=== PATIENT | female | born 1950 | race Caucasian/White ===

== ENCOUNTER 2019-02-25 12:54 | Emergency (ER) | payer OTHER, BC ==
[2019-02-25 13:50] LABS: Absolute Lymphocytes (CBC) 2.4 K/uL (0.7-4.9); Eosinophils % 4.6 % (0-4.4); Hematocrit 40.8 % (36.0-45.0); Lymphocytes % 42.8 % (15.3-44.8); MPV 10.7 fL (7.6-11.3); Monocytes % 7.6 % (3.3-12.3); RBC Red Blood Cell Count 4.37 M/uL (3.86-4.86)
--- NOTE | 2019-02-25 13:50 | RAD REPORT ---
EXAM DESCRIPTION: Carmen Single View02/25/2019 1:43 pm CLINICAL HISTORY: Chest pain COMPARISON: none FINDINGS: The lungs appear clear of acute infiltrate. The heart is normal size IMPRESSION: No acute abnormalities displayed
[2019-02-25 13:51] LABS: Protime INR 0.97
[2019-02-25 14:20] LABS: ALT/SGPT 19 U/L (12-78); AST/SGOT 15 U/L (15-37); Alkaline Phosphatase 77 U/L (45-117); BUN Blood Urea Nitrogen 13 mg/dL (7-18); Bicarbonate 30 mmol/L (21-32); Bilirubin Direct 0.1 mg/dL (0-0.2); Bilirubin Total 0.3 mg/dL (0.2-1.0); Glucose Level 102 mg/dL (74-106); Magnesium 2.4 mg/dL (1.8-2.4); NT PRO-BNP 31 pg/mL (<125); Potassium 3.9 mmol/L (3.5-5.1); Protein, Total 7.5 g/dL (6.4-8.2); Sodium Level 140 mmol/L (136-145); Troponin (Emerg Dept Use Only) < 0.02 ng/mL (0.0-0.045)
[2019-02-25] MEDS ORDERED: MAGNE/ALUM HYDROXD 30 ML UCUP ONE (14:45)
[2019-02-25] MEDS ORDERED: LIDOCAINE VISCOUS 2% SOLN 15 ML UDC ONE (14:45)
[2019-02-25] MEDS ORDERED: ASPIRIN 81 MG CHEWABLE TABLET ONE (14:45)
--- NOTE | 2019-02-25 15:04 | EKG ---
Test Date: 2019-02-25 Test Time: 13:03:13 Coal Trammer: ARIELLE MEASUREMENT RESULTS: Intervals: Rate: 71 WI: 140 QRSD: 64 QT: 386 QTc: 419 Starbuck: P: 61 WI: 140 QRS: 63 T: 65 INTERPRETIVE STATEMENTS: Normal sinus rhythm Low voltage QRS Borderline ECG Compared to ECG 12/22/2004 05:50:00 Low QRS voltage now present Electronically Signed On 02-25-19 15:04:12 CDT by Jose Baez
[2019-02-25] MEDS ORDERED: PANTOPRAZOLE 40 MG INJ ONE (16:35)
[2019-02-25] MEDS ORDERED: WATER FOR INJ,STERILE 10 ML ONE (16:36)
--- NOTE | 2019-02-25 17:03 | EDPHYS ---
Physician Documentation [facility] Name: Ema Mccurdy Age: 68 yrs Sex: Female : 1950 Arrival Date: 02/25/2019 Time: 12:56 Bed 27 Private MD: Benny Gaona S ED Physician Mohit Cristobal HPI: 02/25 13:52 This 68 yrs old Female presents to ER via Ambulatory with complaints of Chest jr8 Pain, Chest Pressure. 13:52 The patient or guardian reports chest pain that is located primarily in the substernal jr8 area. Onset: The symptoms/episode began/occurred acutely, today. The pain does not radiate. Associated signs and symptoms: Pertinent positives: None. The chest pain is described as burning. Duration: The patient or guardian reports a single episode, that is still ongoing, that lasted 3 hour(s). Modifying factors: The symptoms are alleviated by nothing. the symptoms are aggravated by nothing. Severity of pain: At its worst the pain was moderate in the emergency department the pain is unchanged. It is unknown whether or not the patient has had similar symptoms in the past. The patient has not recently seen a physician. Patient stated that she has history of Reflux and normally takes two Zantac a day with relief. At 11 am this morning started to have bad heartburn. Took her Zantac but still without relief. Stated that she started to get dizzy as well . Historical: - Allergies: 13:02 Codeine; hj - PMHx: 13:02 None; hj - PSHx: 13:02 Hysterectomy; hj - Immunization history:: Adult Immunizations. - Social history:: Smoking status: Patient uses tobacco products, smokes one-half pack cigarettes per day. - Ebola Screening: : No symptoms or risks identified at this time. ROS: 13:52 Eyes: Negative for injury, pain, redness, and discharge, ENT: Negative for injury, jr8 pain, and discharge, Neck: Negative for injury, pain, and swelling, Respiratory: Negative for shortness of breath, cough, wheezing, and pleuritic chest pain, Abdomen/GI: Negative for abdominal pain, nausea, vomiting, diarrhea, and constipation, Back: Negative for injury and pain, MS/Extremity: Negative for injury and deformity, Skin: Negative for injury, rash, and discoloration, Neuro: Negative for headache, weakness, numbness, tingling, and seizure. 13:52 Cardiovascular: Positive for chest pain, Negative for edema, orthopnea, palpitations, paroxysmal nocturnal dyspnea. Exam: 13:52 Eyes: Pupils equal round and reactive to light, extra-ocular motions intact. Lids and jr8 lashes normal. Conjunctiva and sclera are non-icteric and not injected. Cornea within normal limits. Periorbital areas with no swelling, redness, or edema. ENT: Nares patent. No nasal discharge, no septal abnormalities noted. Tympanic membranes are normal and external auditory canals are clear. Oropharynx with no redness, swelling, or masses, exudates, or evidence of obstruction, uvula midline. Mucous membranes moist. Neck: Trachea midline, no thyromegaly or masses palpated, and no cervical lymphadenopathy. Supple, full range of motion without nuchal rigidity, or vertebral point tenderness. No Meningismus. Chest/axilla: Normal chest wall appearance and motion. Nontender with no deformity. No lesions are appreciated. Cardiovascular: Regular rate and rhythm with a normal S1 and S2. No gallops, murmurs, or rubs. Normal PMI, no JVD. No pulse deficits. Respiratory: Lungs have equal breath sounds bilaterally, clear to auscultation and percussion. No rales, rhonchi or wheezes noted. No increased work of breathing, no retractions or nasal flaring. Abdomen/GI: Soft, non-tender, with normal bowel sounds. No distension or tympany. No guarding or rebound. No evidence of tenderness throughout. Back: No spinal tenderness. No costovertebral tenderness. Full range of motion. Skin: Warm, dry with normal turgor. Normal color with no rashes, no lesions, and no evidence of cellulitis. MS/ Extremity: Pulses equal, no cyanosis. Neurovascular intact. Full, normal range of motion. Neuro: Awake and alert, GCS 15, oriented to person, place, time, and situation. Cranial nerves II-XII grossly intact. Motor strength 5/5 in all extremities. Sensory grossly intact. Cerebellar exam normal. Normal gait. Vital Signs: 13:02 BP 165 / 78; Pulse 71; Resp 18; Temp 98.6(O); Pulse Ox 100% on R/A; Weight 72.57 kg; hj Height 5 ft. 2 in. (157.48 cm); Pain 8/10; 14:35 BP 151 / 70; Pulse 72; Resp 18 S; Pulse Ox 97% on R/A; aa5 15:26 BP 142 / 76; Pulse 65; Resp 14 S; Pulse Ox 98% on R/A; ca1 16:27 BP 139 / 70; Pulse 68; Resp 14 S; Temp 98.4(O); Pulse Ox 96% on R/A; ca1 17:17 BP 141 / 62; Pulse 72; Resp 19 S; Temp 98.2(TE); Pulse Ox 98% on R/A; ca1 13:02 Body Mass Index 29.26 (72.57 kg, 157.48 cm) hj MDM: 13:05 Patient medically screened. jr8 15:39 Data reviewed: vital signs, nurses notes, lab test result(s), EKG, radiologic studies, jr8 plain films. Data interpreted: Pulse oximetry: on room air is 97 %. Interpretation: normal. Counseling: I had a detailed discussion with the patient and/or guardian regarding: the historical points, exam findings, and any diagnostic results supporting the discharge/admit diagnosis, lab results, radiology results. Response to treatment: the patient's symptoms have markedly improved after treatment. 02/25 13:31 Order name: Basic Metabolic Panel [facility] 02/25 13:31 Order name: CBC with Diff [facility] 02/25 13:31 Order name: LFT's; Complete Time: 14:42 [facility] 02/25 13:31 Order name: Magnesium; Complete Time: 14:42 [facility] 02/25 13:31 Order name: NT PRO-BNP; Complete Time: 14:42 [facility] 02/25 13:31 Order name: PT-INR; Complete Time: 14:07 [facility] 02/25 13:31 Order name: Troponin (emerg Dept Use Only); Complete Time: 14:42 [facility] 02/25 13:31 Order name: XRAY Chest (1 view); Complete Time: 13:51 [facility] 02/25 13:32 Order name: Basic Metabolic Panel; Complete Time: 14:42 [facility] 02/25 13:32 Order name: CBC with Automated Diff; Complete Time: 14:07 [facility] 02/25 15:40 Order name: Troponin (emerg Dept Use Only); Complete Time: 17:01 02/25 13:31 Order name: EKG; Complete Time: 13:32 02/25 13:31 Order name: Cardiac monitoring; Complete Time: :02/25 13:31 Order name: EKG - Nurse/Tech; Complete Time: :33 02/25 13:31 Order name: IV Saline Lock; Complete Time: 13:02/25 13:31 Order name: Labs collected and sent; Complete Time: :02/25 13:31 Order name: O2 Per Protocol; Complete Time: :02/25 13:31 Order name: O2 Sat Monitoring; Complete Time: : Administered Medications: 14:35 Drug: GI Cocktail without - (Maalox Suspension 30 ml, Lidocaine Liquid 2 % 15 aa5 ml) Route: PO; 15:30 Follow up: Response: No adverse reaction; Pain is decreased ca1 14:36 Drug: Aspirin Chewable Tablet 324 mg Route: PO; aa5 15:30 Follow up: Response: No adverse reaction; Pain is decreased ca1 16:17 Drug: ProTONIX 40 mg Route: IVP; Site: right antecubital; ca1 17:17 Follow up: Response: No adverse reaction; Pain is decreased ca1 Disposition: 18:02 Co-signature as Attending Physician, Mohit Cristobal MD. rn Disposition: 02/25/19 17:02 Discharged to Home. Impression: Gastro-esophageal reflux disease with esophagitis, Other chest pain. - Condition is Stable. - Discharge Instructions: Esophagitis. - Prescriptions for Protonix 40 mg Oral Tablet - take 1 tablet by ORAL route once daily; 30 tablet. - Medication Reconciliation Form, Thank You Letter, Antibiotic Education, Prescription Opioid Use form. - Follow up: Louis Orourke MD; When: 5 - 6 days; Reason: Recheck today's complaints, Continuance of care, Re-evaluation by your physician. - Problem is new. - Symptoms have improved. Signatures: Dispatcher [employer] EDMohit Rodriguez MD MD rn Calderon, Audri, RN RN aa5 Kareem Decker PA PA jr8 Aniceto Leon RN RN hj AcobVeda RN RN ca1 Corrections: (The following items were deleted from the chart) 17:02 17:02 02/25/2019 17:02 Discharged to Home. Impression: Gastro-esophageal reflux disease jr8 with esophagitis. Condition is Stable. Forms are Medication Reconciliation Form, Thank You Letter, Antibiotic Education, Prescription Opioid Use. Follow up: Louis Orourke; When: 5 - 6 days; Reason: Recheck today's complaints, Continuance of care, Re-evaluation by your physician. Problem is new. Symptoms have improved. jr8 17:19 17:02 02/25/2019 17:02 Discharged to Home. Impression: Gastro-esophageal reflux disease ca1 with esophagitis; Other chest pain. Condition is Stable. Forms are Medication Reconciliation Form, Thank You Letter, Antibiotic Education, Prescription Opioid Use. Follow up: Louis Orourke; When: 5 - 6 days; Reason: Recheck today's complaints, Continuance of care, Re-evaluation by your physician. Problem is new. Symptoms have improved. jr8
--- NOTE | 2019-02-25 17:03 | ER ---
Nurse's Notes [facility] Name: Ema Mccurdy Age: 68 yrs Sex: Female : 1950 Arrival Date: 02/25/2019 Time: 12:56 Bed 27 Private MD: Benny Gaona S Diagnosis: Gastro-esophageal reflux disease with esophagitis;Other chest pain Presentation: 02/25 12:59 Presenting complaint: Patient states: i have this chest pain, like a dull burning pain hj since 9:30 am; i work last night 12 hour shift, i have a bad heart burn; pain is 7/10; reports N/V; reports SOB;. Transition of care: patient was not received from another setting of care. Onset of symptoms was February 25, 2019. Risk Assessment: Do you want to hurt yourself or someone else? Patient reports no desire to harm self or others. Initial Sepsis Screen: Does the patient meet any 2 criteria? No. Patient's initial sepsis screen is negative. Does the patient have a suspected source of infection? No. Patient's initial sepsis screen is negative. Care prior to arrival: None. 12:59 Method Of Arrival: Ambulatory 12:59 Acuity: JIMENA 3 hj Historical: - Allergies: 13:02 Codeine; hj - PMHx: 13:02 None; hj - PSHx: 13:02 Hysterectomy; hj - Immunization history:: Adult Immunizations. - Social history:: Smoking status: Patient uses tobacco products, smokes one-half pack cigarettes per day. - Ebola Screening: : No symptoms or risks identified at this time. Screenin:10 Abuse screen: Denies threats or abuse. Denies injuries from another. Nutritional ca1 screening: No deficits noted. Tuberculosis screening: No symptoms or risk factors identified. Fall Risk IV access (20 points). Assessment: 13:10 General: Appears in no apparent distress. uncomfortable, Behavior is calm, cooperative, ca1 appropriate for age, Reports unable to lie down. C/O SOB and heartburn when laying down. Pain: Complains of pain in mid-sternal area Pain does not radiate. Pain currently is 8 out of 10 on a pain scale. Quality of pain is described as pressure, Pain began 2 hours ago. Is intermittent, Aggravated by repositioning. Neuro: Level of Consciousness is awake, alert, obeys commands, Oriented to person, place, time, situation. Cardiovascular: Heart tones S1 S2 present Capillary refill < 3 seconds Patient's skin is warm and dry. Pulses are all present. Rhythm is sinus rhythm. Respiratory: Airway is patent Respiratory effort is even, unlabored, Respiratory pattern is regular, symmetrical, Breath sounds are clear bilaterally. Respiratory: Reports shortness of breath. GI: Abdomen is flat, non-distended, Bowel sounds present X 4 quads. Abd is soft and non tender X 4 quads. Reports nausea, vomiting. : No deficits noted. No signs and/or symptoms were reported regarding the genitourinary system. EENT: No deficits noted. No signs and/or symptoms were reported regarding the EENT system. Derm: Skin is intact, is healthy with good turgor, Skin is pink, warm \T\ dry. Musculoskeletal: Circulation, motion, and sensation intact. Capillary refill < 3 seconds, Range of motion: intact in all extremities. 14:35 Reassessment: Patient is alert, oriented x 3, equal unlabored respirations, skin aa5 warm/dry/pink. 15:26 Reassessment: Patient appears in no apparent distress at this time. Patient and/or ca1 family updated on plan of care and expected duration. Pain level reassessed. Patient is alert, oriented x 3, equal unlabored respirations, skin warm/dry/pink. 16:27 Reassessment: Patient appears in no apparent distress at this time. Patient and/or ca1 family updated on plan of care and expected duration. Pain level reassessed. Patient is alert, oriented x 3, equal unlabored respirations, skin warm/dry/pink. 17:17 Reassessment: Patient appears in no apparent distress at this time. Patient is alert, ca1 oriented x 3, equal unlabored respirations, skin warm/dry/pink. Patient states feeling better. Vital Signs: 13:02 BP 165 / 78; Pulse 71; Resp 18; Temp 98.6(O); Pulse Ox 100% on R/A; Weight 72.57 kg; hj Height 5 ft. 2 in. (157.48 cm); Pain 8/10; 14:35 BP 151 / 70; Pulse 72; Resp 18 S; Pulse Ox 97% on R/A; aa5 15:26 BP 142 / 76; Pulse 65; Resp 14 S; Pulse Ox 98% on R/A; ca1 16:27 BP 139 / 70; Pulse 68; Resp 14 S; Temp 98.4(O); Pulse Ox 96% on R/A; ca1 17:17 BP 141 / 62; Pulse 72; Resp 19 S; Temp 98.2(TE); Pulse Ox 98% on R/A; ca1 13:02 Body Mass Index 29.26 (72.57 kg, 157.48 cm) ED Course: 12:56 Patient arrived in ED. as 12:57 Benny Gaona MD is Private Physician. as 13:01 Triage completed. hj 13:02 Arm band placed on left wrist. hj 13:04 Kareem Decker PA is PHCP. jr8 13:04 Mohit Cristobal MD is Attending Physician. jr8 13:10 Patient has correct armband on for positive identification. Placed in gown. Bed in low ca1 position. Call light in reach. Side rails up X 1. ticket chopper assembler on. Pulse ox on. NIBP on. Warm blanket given. 13:10 No provider procedures requiring assistance completed. ca1 13:21 Veda Gonzalez, STACY is Primary Nurse. ca1 13:35 Inserted saline lock: 22 gauge in right antecubital area, using aseptic technique. ca1 Blood collected. Patient maintains SpO2 saturation greater than 95% on room air. 13:45 XRAY Chest (1 view) In Process Unspecified. EDMS 17:01 Louis Orourke MD is Referral Physician. jr8 17:18 IV discontinued, intact, bleeding controlled, No redness/swelling at site. Pressure ca1 dressing applied. Administered Medications: 14:35 Drug: GI Cocktail without - (Maalox Suspension 30 ml, Lidocaine Liquid 2 % 15 aa5 ml) Route: PO; 15:30 Follow up: Response: No adverse reaction; Pain is decreased ca1 14:36 Drug: Aspirin Chewable Tablet 324 mg Route: PO; aa5 15:30 Follow up: Response: No adverse reaction; Pain is decreased ca1 16:17 Drug: ProTONIX 40 mg Route: IVP; Site: right antecubital; ca1 17:17 Follow up: Response: No adverse reaction; Pain is decreased ca1 Outcome: 17:02 Discharge ordered by . jr8 17:18 Discharged to home ambulatory, with family. ca1 17:18 Condition: stable 17:18 Discharge instructions given to patient, Instructed on discharge instructions, follow up and referral plans. medication usage, Demonstrated understanding of instructions, follow-up care, medications, Prescriptions given X 1. 17:19 Patient left the ED. ca1 Signatures: Dispatcher [employer] Celine Wade Audri, RN RN aa5 Kareem Decker PA PA jr8 Aniceto Leon RN RN Veda Gonzalez RN RN ca1 Corrections: (The following items were deleted from the chart) 13:04 13:02 Pulse 71bpm; Resp 18bpm; Pulse Ox 100% RA; Temp 98.6F Oral; 72.57 kg; Height 5 hj ft. 2 in.; BMI: 29.2; Pain 8/10; hj
== END 2019-02-25 17:19 | disposition home or self-care (01) ==
LOC: ER 12:54
DX: K21.0 Gastro-esophageal reflux disease with esophagitis (principal); Z88.5 Allergy status to narcotic agent; F17.210 Nicotine dependence, cigarettes, uncomplicated
CPT/HCPCS: 93005; 85025; 80048; 36415; 83735; 85610; 80076; 84484 ×2; 83880; 71045; C9113

== ENCOUNTER 2019-05-11 12:26 | Emergency (ER) | payer BC, OTHER ==
[2019-05-11] MEDS ORDERED: MAGNE/ALUM HYDROXD 30 ML UCUP ONE (12:46)
[2019-05-11] MEDS ORDERED: LIDOCAINE VISCOUS 2% SOLN 15 ML UDC ONE (12:46)
[2019-05-11] MEDS ORDERED: FAMOTIDINE 20 MG/2 ML VIAL IV ONE (14:18)
[2019-05-11 14:49] LABS: Absolute Lymphocytes (CBC) 1.6 K/uL (0.7-4.9); Basophils % 1.3 % (0-1.3); Hematocrit 39.6 % (36.0-45.0); Lymphocytes % 33.4 % (15.3-44.8); MPV 10.5 fL (7.6-11.3); RBC Red Blood Cell Count 4.26 M/uL (3.86-4.86)
--- NOTE | 2019-05-11 15:06 | RAD REPORT ---
EXAM DESCRIPTION: RAD - Chest Single View - 05/11/2019 2:50 pm CLINICAL HISTORY: Chest pain COMPARISON: February 25 TECHNIQUE: AP portable chest image was obtained 1445 hours . FINDINGS: Lungs are clear. Heart and vasculature are normal. No measurable pleural effusion and no p neumothorax. No acute bony abnormality seen. No acute aortic findings suspected. IMPRESSION: No acute cardiopulmonary process. No significant change from comparison.
[2019-05-11 15:12] LABS: ALT/SGPT 18 U/L (12-78); AST/SGOT 16 U/L (15-37); Albumin 4.2 g/dL (3.4-5.0); Alkaline Phosphatase 68 U/L (45-117); BUN Blood Urea Nitrogen 13 mg/dL (7-18); Bicarbonate 30 mmol/L (21-32); Bilirubin Direct 0.1 mg/dL (0-0.2); Bilirubin Total 0.4 mg/dL (0.2-1.0); Glucose Level 102 mg/dL (74-106); Lipase 82 U/L (73-393); NT PRO-BNP 59 pg/mL (<125); Potassium 3.9 mmol/L (3.5-5.1); Protein, Total 7.1 g/dL (6.4-8.2); Sodium Level 139 mmol/L (136-145); Troponin (Emerg Dept Use Only) < 0.02 ng/mL (0.0-0.045)
--- NOTE | 2019-05-11 15:50 | EDPHYS ---
Physician Documentation [facility] Name: Ema Mccurdy Age: 69 yrs Sex: Female : 1950 Arrival Date: 05/11/2019 Time: 12:28 Bed 4 Private MD: Benny Gaona S ED Physician Mohit Cristobal HPI: 05/11 15:14 This 69 yrs old Female presents to ER via Ambulatory with complaints of Chest rn Pain, Dizziness. 15:14 The patient or guardian reports chest pain that is located primarily in the substernal rn area. Onset: 2 week(s) ago. The pain radiates to abdomen. Associated signs and symptoms: Pertinent positives: abdominal pain, Pertinent negatives: cough, diaphoresis, dizziness, lightheadedness, near syncope, palpitations, shortness of breath, syncope, vomiting. The chest pain is described as burning. Duration: The patient or guardian reports multiple episodes, that are intermittent. Modifying factors: The symptoms are alleviated by nothing. the symptoms are aggravated by palpation of area, food. Severity of pain: At its worst the pain was mild in the emergency department the pain has improved. The patient has experienced similar episodes in the past. REports had EGD 2 weeks ago, told has esophagitis and gastric ulcer, put on antacids, has still been having problems since then, taking meds, reports seen for this before and resolved with GI cocktail. Reports burning pain from stomach to chest. No radiation. . Historical: - Allergies: 14:53 Codeine; tw2 - PSHx: 14:53 Hysterectomy; tw2 - Immunization history:: Adult Immunizations up to date. - Social history:: Smoking status: . - Ebola Screening: : Patient denies travel to an Ebola-affected area in the 21 days before illness onset. - Family history:: not pertinent. - Hospitalizations: : No recent hospitalization is reported. ROS: 15:14 Constitutional: Negative for fever, chills, and weight loss, Eyes: Negative for injury, rn pain, redness, and discharge, Neck: Negative for injury, pain, and swelling, Cardiovascular: Negative for palpitations, and edema, Respiratory: Negative for shortness of breath, cough, wheezing, and pleuritic chest pain, Abdomen/GI: Negative for vomiting, diarrhea, and constipation, Back: Negative for injury and pain, MS/Extremity: Negative for injury and deformity, Skin: Negative for injury, rash, and discoloration, Neuro: Negative for headache, weakness, numbness, tingling, and seizure. Exam: 15:14 Constitutional: This is a well developed, well nourished patient who is awake, alert, rn and in no acute distress. Head/Face: Normocephalic, atraumatic. Eyes: Pupils equal round and reactive to light, extra-ocular motions intact. Lids and lashes normal. Conjunctiva and sclera are non-icteric and not injected. Cornea within normal limits. Periorbital areas with no swelling, redness, or edema. Cardiovascular: Regular rate and rhythm. No pulse deficits. Respiratory: Lungs have equal breath sounds bilaterally, clear to auscultation. No increased work of breathing, no retractions or nasal flaring. Abdomen/GI: soft, non-tender MS/ Extremity: Pulses equal, no cyanosis. Neurovascular intact. Full, normal range of motion. Equal circumference. Neuro: Awake and alert, GCS 15, oriented to person, place, time, and situation. Cranial nerves II-XII grossly intact. Motor strength 5/5 in all extremities. Sensory grossly intact. Cerebellar exam normal. Normal gait. Vital Signs: 12:37 BP 147 / 73; Pulse 74; Resp 16; Temp 97.3; Pulse Ox 100% on R/A; la1 14:51 BP 150 / 66; Pulse 62; Resp 10; Pulse Ox 99% on R/A; tw2 15:48 BP 144 / 70; Pulse 64; Resp 20; Pulse Ox 97% on R/A; tw2 MDM: 14:01 Patient medically screened. rn 15:14 ED course: Patient given GI cocktail in lobby, when brought back reports resolved pain, rn feels much better. . 15:48 Differential diagnosis: acute pericarditis, coronary artery disease costochondritis, rn esophagitis, gastritis, gastroesophageal reflux disease (GERD), pancreatitis, peptic ulcer disease, pericarditis, pleurisy. Data reviewed: vital signs, nurses notes, lab test result(s), EKG, radiologic studies, plain films, and as a result, I will discharge patient. Counseling: I had a detailed discussion with the patient and/or guardian regarding: the historical points, exam findings, and any diagnostic results supporting the discharge/admit diagnosis, lab results, radiology results, the need for outpatient follow up, to return to the emergency department if symptoms worsen or persist or if there are any questions or concerns that arise at home. Special discussion: I discussed with the patient/guardian in detail that at this point there is no indication for admission to the hospital. It is understood, however, that if the symptoms persist or worsen the patient needs to return immediately for re-evaluation. 05/11 14:06 Order name: Basic Metabolic Panel rn 05/11 14:06 Order name: CBC with Diff rn 05/11 14:06 Order name: LFT's rn 05/11 14:06 Order name: NT PRO-BNP rn 05/11 14:06 Order name: Troponin (emerg Dept Use Only) rn 05/11 14:06 Order name: Lipase rn 05/11 14:06 Order name: XRAY Chest (1 view) rn 05/11 15:30 Order name: CBC with Automated Diff; Complete Time: 15:47 EDMS 05/11 15:30 Order name: Basic Metabolic Panel; Complete Time: 15:47 EDMS 05/11 15:30 Order name: Liver (Hepatic) Function; Complete Time: 15:47 EDMS 05/11 15:30 Order name: Troponin (Emerg Dept Use Only); Complete Time: 15:47 EDMS 05/11 15:30 Order name: NT PRO-BNP; Complete Time: 15:47 EDMS 05/11 15:30 Order name: Lipase; Complete Time: 15:47 EDMS 05/11 15:35 Order name: RAD; Complete Time: 15:47 EDMS 05/11 14:06 Order name: EKG; Complete Time: 15:32 rn 05/11 14:06 Order name: Cardiac monitoring; Complete Time: 14:13 rn 05/11 14:06 Order name: EKG - Nurse/Tech; Complete Time: 14:13 rn 05/11 14:06 Order name: IV Saline Lock; Complete Time: 14:25 rn 05/11 14:06 Order name: Labs collected and sent; Complete Time: 14:25 rn 05/11 14:06 Order name: O2 Per Protocol; Complete Time: 14:13 rn 05/11 14:06 Order name: O2 Sat Monitoring; Complete Time: 14:13 rn Administered Medications: 14:22 Drug: Pepcid 20 mg Route: IVP; Site: right antecubital; tw2 15:54 Follow up: Response: No adverse reaction; Pain is decreased tw2 Disposition: 05/11/19 15:49 Discharged to Home. Impression: Chest pain, unspecified, Gastro-esophageal reflux disease with esophagitis. - Condition is Stable. - Discharge Instructions: Food Choices for Gastroesophageal Reflux Disease, Adult, Esophagitis, Gastroesophageal Reflux Disease, Adult. - Medication Reconciliation Form, Thank You Letter, Antibiotic Education, Prescription Opioid Use form. - Follow up: Private Physician; When: As needed; Reason: Recheck today's complaints, Re-evaluation by your physician. - Problem is new. - Symptoms have improved. Signatures: Dispatcher [employer] EDLexi Grey RN RN aj1 Mohit Cristobal MD MD rn Wise, Tara, RN RN tw2 Corrections: (The following items were deleted from the chart) 16:03 15:49 05/11/2019 15:49 Discharged to Home. Impression: Chest pain, unspecified; tw2 Gastro-esophageal reflux disease with esophagitis. Condition is Stable. Forms are Medication Reconciliation Form, Thank You Letter, Antibiotic Education, Prescription Opioid Use. Follow up: Private Physician; When: As needed; Reason: Recheck today's complaints, Re-evaluation by your physician. Problem is new. Symptoms have improved. rn
--- NOTE | 2019-05-11 15:50 | ER ---
Nurse's Notes [facility] Name: Ema Mccurdy Age: 69 yrs Sex: Female : 1950 Arrival Date: 05/11/2019 Time: 12:28 Bed 4 Private MD: Benny Gaona S Diagnosis: Chest pain, unspecified;Gastro-esophageal reflux disease with esophagitis Presentation: 05/11 12:36 Presenting complaint: Patient states: Since 1000 this morning I have been having a la1 burning pain in my chest from my throat down but also feeling kind of lightheaded. I am on a daily PPI from my GI but it isnt helping. Transition of care: patient was not received from another setting of care. Onset of symptoms was May 11, 2019. Risk Assessment: Do you want to hurt yourself or someone else? Patient reports no desire to harm self or others. Initial Sepsis Screen: Does the patient meet any 2 criteria? No. Patient's initial sepsis screen is negative. Does the patient have a suspected source of infection? No. Patient's initial sepsis screen is negative. Care prior to arrival: None. 12:36 Method Of Arrival: Ambulatory la1 12:36 Acuity: JIMENA 3 la1 Historical: - Allergies: 14:53 Codeine; tw2 - PSHx: 14:53 Hysterectomy; tw2 - Immunization history:: Adult Immunizations up to date. - Social history:: Smoking status: . - Ebola Screening: : Patient denies travel to an Ebola-affected area in the 21 days before illness onset. - Family history:: not pertinent. - Hospitalizations: : No recent hospitalization is reported. Screenin:15 Abuse screen: Denies threats or abuse. Denies injuries from another. Nutritional aj1 screening: No deficits noted. Tuberculosis screening: No symptoms or risk factors identified. Fall Risk None identified. Assessment: 14:15 General: Appears in no apparent distress. comfortable, Behavior is calm, cooperative, aj1 appropriate for age. Pain: Complains of pain in mid-sternal area Pain does not radiate. Pain currently is 5 out of 10 on a pain scale. Quality of pain is described as burning, Pain began gradually. Neuro: Level of Consciousness is awake, alert, obeys commands, Oriented to person, place, time, situation. Cardiovascular: Reports chest pain, Denies shortness of breath, Heart tones S1 S2 present Patient's skin is warm and dry. Rhythm is regular. Respiratory: Airway is patent Respiratory effort is even, unlabored, Respiratory pattern is regular, symmetrical, Breath sounds are clear bilaterally. GI: Abdomen is non-distended, Reports that she recently had an endoscopy done by Dr. Orourke and she was told that she had esophagitis, a peptic ulcer and a hernia. States that she was given a GI cocktail in triage and that help diminish her pain by a great deal. : No signs and/or symptoms were reported regarding the genitourinary system. EENT: No signs and/or symptoms were reported regarding the EENT system. Derm: No signs and/or symptoms reported regarding the dermatologic system. Skin is pink, warm \T\ dry. normal. Musculoskeletal: No signs and/or symptoms reported regarding the musculoskeletal system. Circulation, motion, and sensation intact. 15:48 Reassessment: Patient appears in no apparent distress at this time. No changes from tw2 previously documented assessment. Patient and/or family updated on plan of care and expected duration. Pain level reassessed. Patient is alert, oriented x 3, equal unlabored respirations, skin warm/dry/pink. 16:02 Reassessment: Patient appears in no apparent distress at this time. No changes from tw2 previously documented assessment. Patient and/or family updated on plan of care and expected duration. Pain level reassessed. Patient is alert, oriented x 3, equal unlabored respirations, skin warm/dry/pink. Vital Signs: 12:37 BP 147 / 73; Pulse 74; Resp 16; Temp 97.3; Pulse Ox 100% on R/A; la1 14:51 BP 150 / 66; Pulse 62; Resp 10; Pulse Ox 99% on R/A; tw2 15:48 BP 144 / 70; Pulse 64; Resp 20; Pulse Ox 97% on R/A; tw2 ED Course: 12:28 Patient arrived in ED. as 12:28 Benny Gaona MD is Private Physician. as 12:37 Triage completed. la1 12:37 Arm band placed on right wrist. EKG completed in triage. Results shown to MD. la1 14:00 Lexi Tarango, STACY is Primary Nurse. aj1 14:01 Mohit Cristobal MD is Attending Physician. rn 14:15 Patient has correct armband on for positive identification. night monitor on. Pulse aj1 ox on. NIBP on. 14:18 No provider procedures requiring assistance completed. Patient maintains SpO2 aj1 saturation greater than 95% on room air. 16:02 IV discontinued, intact, bleeding controlled, No redness/swelling at site. Pressure tw2 dressing applied. Administered Medications: 14:22 Drug: Pepcid 20 mg Route: IVP; Site: right antecubital; tw2 15:54 Follow up: Response: No adverse reaction; Pain is decreased tw2 Outcome: 15:49 Discharge ordered by . rn 16:02 Discharged to home ambulatory. tw2 16:02 Condition: stable 16:02 Discharge instructions given to patient, Instructed on discharge instructions, follow up and referral plans. Demonstrated understanding of instructions, follow-up care. 16:03 Patient left the ED. tw2 Signatures: Lexi Tarango RN RN aj1 Celine Sinha Roman, MD MD rn Attema, Lee, RN RN la1 Angeles Nick RN RN tw2
[2019-05-11 18:56] VITALS: TEMP 97.3
[2019-05-11 18:59] VITALS: BP 144/70; O2SAT 97
--- NOTE | 2019-05-12 07:28 | EKG ---
Test Date: 2019-05-11 Test Time: 12:40:08 Harbor Master: ARIELLE MEASUREMENT RESULTS: Intervals: Rate: 74 DC: 134 QRSD: 64 QT: 388 QTc: 430 Nenzel: P: 45 DC: 134 QRS: 67 T: 70 INTERPRETIVE STATEMENTS: Normal sinus rhythm Septal infarct, age undetermined Abnormal ECG Compared to ECG 02/25/2019 13:03:13 Myocardial infarct finding now present Electronically Signed On 05-12-19 07:27:43 CDT by Jose Baez
== END 2019-05-11 16:03 | disposition home or self-care (01) ==
LOC: ER 12:26
DX: R07.9 Chest pain, unspecified (principal); K21.9 Gastro-esophageal reflux disease without esophagitis; Z88.6 Allergy status to analgesic agent
CPT/HCPCS: 36415; 71045; 80048; 80076; 83690; 83880; 84484; 85025; 93005; 96374; 99284

== ENCOUNTER 2022-05-09 12:02 | Emergency (ER) | payer OTHER ==
--- OUTSIDE RECORDS SUMMARY | 2022-05-09 12:08 | XMS REPORT | Continuity of Care Document ---
:1950 Author Organization [facility] t Address [address] [place] [address] Care Team Providers Name Role Phone Benny Gaona MD Primary Care Physician Benny Gaona MD Attending Clinician Payers Payer Name Policy Type Policy Number Effective Date Expiration Date S ource Problems Condition Condition Condition Status Onset Resolution Last Treating Co mments Source Name Details Category Date Date Treatment Clinician Date Gastroesop Gastroesop Disease Active U nivers hageal hageal 8-19 ity of reflux reflux 00:00: [place] disease disease 00 Medical without without Branch esophagiti esophagiti s s Left arm Left arm Disease Active 2015-08 Unive rs pain pain 0-04 ity of 00:00: [place] 00 Medical Branch Anxiety Anxiety Disease Active 2014-08 Univers 0-28 ity of 00:00: [place] 00 Medical Branch Allergies, Adverse Reactions, Alerts Allergy Allergy Status Severity Reaction(s) Onset Inactive Treating Comm ents Source Name Type Date Date Clinician Hydrocod Propensi Active Rash 2015-08 Univer s one ty to 0-04 ity of adverse 00:00: [place] reaction 00 Medical s Branch Codeine Propensi Active Rash Univers ty to 9-25 ity of adverse 00:00: [place] reaction 00 Medical s Branch Penicill Propensi Active Rash Univer s ins ty to 9-25 ity of adverse 00:00: [place] reaction 00 Medical s Branch Social History Social Habit Start Date Stop Date Quantity Comments Source History of tobacco Cigarette Smoker University of use [facility] History SDOH University o f Alcohol Frequency [facility] edical Branch History [facility] University o f Alcohol Std Drinks [facility] History [facility] University o f Alcohol Binge [facility] [place] Exposure to 2021-12-23 2022-01-02 Not sure University SARS-CoV-2 (event) 00:00:00 07:19:00 [facility] Cigarettes smoked 2020-12-29 2020-12-29 Univers ity of current (pack per 00:00:00 00:00:00 [facility] ) - Reported Branch Cigarette 2020-12-29 2020-12-29 University of pack-years 00:00:00 00:00:00 [facility] Tobacco use and 2020-12-29 2020-12-29 Never used Universit y of exposure 00:00:00 00:00:00 [facility] Alcohol intake 2020-12-29 2020-12-29 0 /d University of 00:00:00 00:00:00 [facility] Alcohol Comment 2015-08-10 2015-08-10 ocassional Universit y of 00:00:00 00:00:00 [facility] Sex Ass[birth year] Universit y of 00:00:00 00:00:00 [facility] Smoking Status Start Date Stop Date Source Current some day smoker 2020-12-29 00:00:00 [facility] Medications Ordered Filled Start Stop Current Ordering Indication Dosage Frequency Signature Comments Components Source Medication Medication Date Date Medication? Clinician (SIG) Name Name OMEPRAZOLE Yes Take by [facility] ers ORAL 5-24 mouth. ity of 07:19: [address] OMEPRAZOLE Yes Take by [facility] ers ORAL 5-24 mouth. ity of 07:19: [address] No known No Univers medications 5-24 ity of 07:19: [address] pantoprazol 2021- No 40mg Take 40 mg Univers e 40 mg EC 5-24 by mouth ity of tablet 07:19: 00:00 daily. [place] 16 :00 [facility] pantoprazol 2021- No 40mg Take 40 mg Univers e 40 mg EC 5-24 05-24 by mouth ity of tablet 07:19: 00:00 daily. [place] 16 :00 Medical Branch SERTraline Yes [id number] 100mg Take 1 Univers 100 mg 5-24 tablet by ity of tablet 00:00: [facility] 00 every Medical morning. Branch SERTraline Yes [id number] 100mg Take 1 Univers 100 mg 5-24 tablet by ity of tablet 00:00: [facility] 00 every Medical morning. Branch SERTRALINE 2021- No [id number] 100mg TAKE 1 Univers 100 mg 3-23 05-24 TABLET BY ity of tablet 00:00: 00:00 [facility] 00 :00 EVERY Medical MORNING Branch SERTRALINE 2021- No [id number] 100mg TAKE 1 Univers 100 mg 3-23 05-24 TABLET BY ity of tablet 00:00: 00:00 [facility] 00 :00 EVERY Medical MORNING Branch albuterol 2021- No [id number] 2{puff} Inhale 2 Univers 90 9-13 05-24 Puffs ity of mcg/actuati 00:00: 00:00 [place] 6 [place] inhaler 00 :00 (six) Medical hours as Branch needed for Wheezing or Shortness of Breath. albuterol 2021- No [id number] 2{puff} Inhale 2 Univers 90 9-13 05-24 Puffs ity of mcg/actuati 00:00: 00:00 [place] 6 [place] inhaler 00 :00 (six) Medical hours as Branch needed for Wheezing or Shortness of Breath. benzonatate 2021- No [id number] 100mg Take 1 Univers (TESSALON 5-20 05-24 capsule by ity of PERLES) 100 00:00: 00:00 mouth 3 [place] mg capsule 00 :00 (three) Medica l times Branch daily. benzonatate 2021- No [id number] 100mg Take 1 Univers (TESSALON 5-20 05-24 capsule by ity of PERLES) 100 00:00: 00:00 mouth [place] capsule 00 :00 (three) Medica l times Branch daily. Immunizations Ordered Filled Immunization Date Status Comments [facility] e Immunization Name Name SARS-COV-2 COVID-19 2020-10-17 Completed Unive rsity of MODERNA VACCINE 00:00:00 [facility] Branch SARS-COV-2 COVID-19 2020-10-17 Completed Unive rsity of MODERNA VACCINE 00:00:00 [facility] Branch SARS-COV-2 COVID-19 2020-10-17 Completed Unive rsity of MODERNA VACCINE 00:00:00 [facility] Branch SARS-COV-2 COVID-19 2020-09-19 Completed Unive rsity of MODERNA VACCINE 00:00:00 [facility] Branch SARS-COV-2 COVID-19 2020-09-19 Completed Unive rsity of MODERNA VACCINE 00:00:00 [facility] Branch SARS-COV-2 COVID-19 2020-09-19 Completed Unive rsity of MODERNA VACCINE 00:00:00 [facility] Branch Pneumococcal 2020-05-19 Completed University o f Polysaccharide, 00:00:00 [facility] PPSV23 (PNEUMOVAX) Branch Influenza High Dose 2020-05-19 Completed Unive rsity of [place] 00:00:00 [facility] Pneumococcal 2020-05-19 Completed University o f Polysaccharide, 00:00:00 [facility] PPSV23 (PNEUMOVAX) Branch Influenza High Dose 2020-05-19 Completed Unive rsity of [place] 00:00:00 [facility] Pneumococcal 2020-05-19 Completed University o f Polysaccharide, 00:00:00 [facility] PPSV23 (PNEUMOVAX) Branch Influenza High Dose 2020-05-19 Completed Unive rsity of [place] 00:00:00 [facility] Influenza High Dose 2017-09-10 Completed Unive rsity of 00:00:00 [facility] Influenza High Dose 2017-09-10 Completed Unive rsity of 00:00:00 [facility] Influenza High Dose 2017-09-10 Completed Unive rsity of 00:00:00 [facility] Vital Signs Vital Name Observation Time Observation Value Comments Source Systolic blood 2022-01-02 12:13:00 117 mm[Hg] [facility] Diastolic blood 2022-01-02 12:13:00 68 mm[Hg] [facility] Heart rate 2022-01-02 12:13:00 66 /min General acute hospital Body height 2022-01-02 12:13:00 162.6 cm General acute hospital Body weight 2022-01-02 12:13:00 69.854 kg General acute hospital BMI 2022-01-02 12:13:00 26.43 kg/m2 General acute hospital Procedures This patient has no known procedures. Encounters Start End Encounter Admission Attending Care Care Encounter Source Date/Time Date/Time Type Type Clinicians Facility Department ID 2022-01-02 2022-01-02 Office Jimenez [facility] [id number] Univers 07:00:00 07:15:00 Visit [employer] [id number] it y of [place] [id number] Vini as SIMA?BLEA [id number] [address] OFFICE BUILDING 2022-01-01 2022-01-01 Telephone Jimenez [facility] [id number] Univers 00:00:00 00:00:00 [employer] [id number] it y of [place] [id number] Vini as SIMA?BLEA [id number] [address] OFFICE BUILDING Results This patient has no known results.
[2022-05-09 12:51] LABS: Absolute Lymphocytes (CBC) 1.2 K/uL (0.7-4.9); Hematocrit 39.3 % (36.0-45.0); Lymphocytes % 27.5 % (15.3-44.8); MPV 9.5 fL (7.6-11.3); RBC Red Blood Cell Count 4.32 M/uL (3.86-4.86)
--- NOTE | 2022-05-09 13:04 | RAD REPORT ---
EXAM DESCRIPTION: Carmen Single View05/09/2022 12:37 pm CLINICAL HISTORY: Shortness of breath COMPARISON: 2019 FINDINGS: The lungs appear clear of acute infiltrate. The heart is normal size IMPRESSION: No acute abnormalities displayed
[2022-05-09 13:08] LABS: Potassium 4.2 mmol/L (3.5-5.1); Troponin High Sensitivity 4.4 pg/mL (<58.9)
--- NOTE | 2022-05-09 14:41 | ER ---
Nurse's Notes [facility] Name: Ema Mccurdy Age: 72 yrs Sex: Female : 1950 Arrival Date: 05/09/2022 Time: 12:07 Bed 17 Private MD: Diagnosis: Dyspnea, unspecified Presentation: 05/09 12:10 Chief complaint: Patient states: I started having a hard time breathing on Saturday and iw it's getting worse and I feel like I am getting pneumonia. Coronavirus screen: Client presents with at least one sign or symptom that may indicate coronavirus-19. Standard/surgical mask placed on the client. Ebola Screen: No symptoms or risks identified at this time. Initial Sepsis Screen: Does the patient meet any 2 criteria? No. Patient's initial sepsis screen is negative. Does the patient have a suspected source of infection? No. Patient's initial sepsis screen is negative. Risk Assessment: Do you want to hurt yourself or someone else? Patient reports no desire to harm self or others. Onset of symptoms is unknown. 12:10 Method Of Arrival: Ambulatory iw 12:10 Acuity: JIMENA 2 iw Triage Assessment: 12:11 General: Appears in no apparent distress. comfortable, Behavior is calm, cooperative, iw appropriate for age. Pain: Denies pain. EENT: No deficits noted. No signs and/or symptoms were reported regarding the EENT system. Neuro: No deficits noted. Cardiovascular: No deficits noted. Respiratory: Reports shortness of breath at rest on exertion cough that is productive, pain with cough pain with respiration Airway is patent Respiratory effort is even, unlabored, Respiratory pattern is regular, symmetrical, Breath sounds with wheezes bilaterally. Onset: The symptoms/episode began/occurred gradually, the patient has moderate shortness of breath. GI: No deficits noted. No signs and/or symptoms were reported involving the gastrointestinal system. : No deficits noted. No signs and/or symptoms were reported regarding the genitourinary system. Derm: No deficits noted. No signs and/or symptoms reported regarding the dermatologic system. Musculoskeletal: No deficits noted. No signs and/or symptoms reported regarding the musculoskeletal system. Historical: - Allergies: 12:11 Codeine; iw - Home Meds: 12:11 Zoloft 100 mg Oral tab 1 tab once daily [Active]; iw - PMHx: 12:11 Depressive disorder; iw - PSHx: 12:11 Total abdominal hysterectomy; iw - Immunization history:: Adult Immunizations up to date, Client reports receiving the 2nd dose of the Covid vaccine, Client reports receiving the 1st dose of the Covid vaccine. - Social history:: Smoking status: Patient reports the use of cigarette tobacco products, unknown amount. Screenin:15 Abuse screen: Denies threats or abuse. Denies injuries from another. Nutritional bp screening: No deficits noted. Tuberculosis screening: No symptoms or risk factors identified. Fall Risk None identified. Assessment: 12:15 General: SEE TRIAGE NOTE. bp 14:00 Reassessment: No changes from previously documented assessment. Patient and/or family bp updated on plan of care and expected duration. Pain level reassessed. Vital Signs: 12:10 BP 126 / 77; Pulse 72; Resp 20; Temp 98.1(O); Pulse Ox 95% on R/A; Weight 72.57 kg (R); iw Height 5 ft. 4 in. (162.56 cm); Pain 0/10; 14:09 BP 139 / 99; Pulse 71; Resp 16; Pulse Ox 99% ; bp 12:10 Body Mass Index 27.46 (72.57 kg, 162.56 cm) iw ED Course: 12:07 Patient arrived in ED. rg4 12:11 Triage completed. iw 12:11 Arm band placed on left wrist. iw 12:15 Alejandro Reyes is PHCP. jl9 12:15 Mohit Cristobal MD is Attending Physician. jl9 12:15 Patient has correct armband on for positive identification. Bed in low position. Call bp light in reach. Side rails up X2. 12:22 Faustino Barron, RN is Primary Nurse. bp 12:39 XRAY Chest (1 view) In Process Unspecified. EDMS 12:43 Initial lab(s) drawn, by me, sent to lab. EKG done, by ED staff, reviewed by Alejandro Reyes. Inserted saline lock: 20 gauge in left antecubital area, using aseptic technique. Blood collected. 12:44 D-Dimer Sent. jw7 12:44 BNP Sent. jw7 12:44 D-Dimer Sent. jw7 12:44 Basic Metabolic Panel Sent. jw7 12:44 CBC with Diff Sent. jw7 12:44 Troponin HS Sent. jw7 12:51 BNP Sent. jw7 12:51 D-Dimer Sent. jw7 12:51 Basic Metabolic Panel Sent. jw7 12:51 CBC with Diff Sent. jw7 12:51 Troponin HS Sent. jw7 Administered Medications: No medications were administered Outcome: 14:40 Discharge ordered by MD. man 14:59 Patient left the ED. 7 Signatures: Dispatcher [employer] EDMS Katie Martinez RN RN iw Garcia, Rubi 4 Faustino Barron RN RN bp McCarthy, Brittany, RN RN bm7 Waits, Jodi jw7 Alejandro Reyes jl9 Corrections: (The following items were deleted from the chart) 12:13 12:11 PSHx: hyst; wilver pettit
--- NOTE | 2022-05-09 14:41 | EDPHYS ---
Physician Documentation [facility] Name: Ema Mccurdy Age: 72 yrs Sex: Female : 1950 Arrival Date: 05/09/2022 Time: 12:07 Bed 17 Private MD: ED Physician Mohit Cristobal HPI: 05/09 12:32 This 72 yrs old Female presents to ER via Ambulatory with complaints of mild jl9 Breathing Difficulty x2 days. Patient reports that she feels that she is developing pneumonia. Prior smoker and history of COPD. Tio reports feeling better after having some of her daughter's albuterol. . 12:32 The patient has shortness of breath during heavy activity. Onset: The symptoms/episode jl9 began/occurred 2 day(s) ago. The patient's shortness of breath has no apparent modifying factors. Associated signs and symptoms: Pertinent positives: productive cough. Severity of symptoms: Pain is currently a 0 / 10. The patient has experienced similar episodes in the past. Historical: - Allergies: 12:11 Codeine; iw - Home Meds: 12:11 Zoloft 100 mg Oral tab 1 tab once daily [Active]; iw - PMHx: 12:11 Depressive disorder; iw - PSHx: 12:11 Total abdominal hysterectomy; iw - Immunization history:: Adult Immunizations up to date, Client reports receiving the 2nd dose of the Covid vaccine, Client reports receiving the 1st dose of the Covid vaccine. - Social history:: Smoking status: Patient reports the use of cigarette tobacco products, unknown amount. ROS: 12:33 Constitutional: Negative for fever, chills, and weight loss, Eyes: Negative for injury, jl9 pain, redness, and discharge, ENT: Negative for injury, pain, and discharge, Neck: Negative for injury, pain, and swelling, Cardiovascular: Negative for chest pain, palpitations, and edema. 12:33 Abdomen/GI: Negative for abdominal pain, nausea, vomiting, diarrhea, and constipation, Back: Negative for injury and pain, : Negative for injury, bleeding, discharge, and swelling, MS/Extremity: Negative for injury and deformity, Skin: Negative for injury, rash, and discoloration, Neuro: Negative for headache, weakness, numbness, tingling, and seizure, Psych: Negative for depression, anxiety, suicide ideation, homicidal ideation, and hallucinations, Allergy/Immunology: Negative for hives, rash, and allergies, Endocrine: Negative for neck swelling, polydipsia, polyuria, polyphagia, and marked weight changes, Hematologic/Lymphatic: Negative for swollen nodes, abnormal bleeding, and unusual bruising. 12:33 Respiratory: Positive for cough, shortness of breath. Exam: 12:34 Abdomen/GI: Soft, non-tender, with normal bowel sounds. No distension or tympany. No jl9 guarding or rebound. No evidence of tenderness throughout. Back: No spinal tenderness. No costovertebral tenderness. Full range of motion. Skin: Warm, dry with normal turgor. Normal color with no rashes, no lesions, and no evidence of cellulitis. MS/ Extremity: Pulses equal, no cyanosis. Neurovascular intact. Full, normal range of motion. Neuro: Awake and alert, GCS 15, oriented to person, place, time, and situation. Cranial nerves II-XII grossly intact. Motor strength 5/5 in all extremities. Sensory grossly intact. Cerebellar exam normal. Normal gait. Psych: Awake, alert, with orientation to person, place and time. Behavior, mood, and affect are within normal limits. 12:34 Constitutional: This is a well developed, well nourished patient who is awake, alert, and in no acute distress. Head/Face: Normocephalic, atraumatic. Eyes: Pupils equal round and reactive to light, extra-ocular motions intact. Lids and lashes normal. Conjunctiva and sclera are non-icteric and not injected. Cornea within normal limits. Periorbital areas with no swelling, redness, or edema. ENT: Mucous membranes moist. Neck: Trachea midline, no thyromegaly or masses palpated, and no cervical lymphadenopathy. Supple, full range of motion without nuchal rigidity, or vertebral point tenderness. No Meningismus. Chest/axilla: Normal chest wall appearance and motion. Nontender with no deformity. No lesions are appreciated. Cardiovascular: Regular rate and rhythm with a normal S1 and S2. No gallops, murmurs, or rubs. Normal PMI, no JVD. No pulse deficits. 12:34 Respiratory: the patient does not display signs of respiratory distress, Respirations: normal, Breath sounds: + upper airway congestion. 12:34 Respiratory: Breath sounds: are clear throughout. jl9 Vital Signs: 12:10 BP 126 / 77; Pulse 72; Resp 20; Temp 98.1(O); Pulse Ox 95% on R/A; Weight 72.57 kg (R); iw Height 5 ft. 4 in. (162.56 cm); Pain 0/10; 14:09 BP 139 / 99; Pulse 71; Resp 16; Pulse Ox 99% ; bp 12:10 Body Mass Index 27.46 (72.57 kg, 162.56 cm) iw MDM: 12:15 Patient medically screened. jl9 12:34 Data reviewed: vital signs, nurses notes. Test interpretation: by ED physician or [facility] midlevel provider: ECG. 13:44 Counseling: I had a detailed discussion with the patient and/or guardian regarding: the [facility] historical points, exam findings, and any diagnostic results supporting the discharge/admit diagnosis, lab results, radiology results, the need for outpatient follow up, to return to the emergency department if symptoms worsen or persist or if there are any questions or concerns that arise at home. 14:39 ED course: Patient currently asymptomatic and wishes to be discharged. Agrees to follow [facility] up with PCP in 1-2 days. . 05/09 12:17 Order name: Basic Metabolic Panel; Complete Time: 13:24 05/09 12:17 Order name: CBC with Diff; Complete Time: 13:24 05/09 12:17 Order name: Troponin HS; Complete Time: 13:24 05/09 12:17 Order name: D-Dimer; Complete Time: 13:40 05/09 12:17 Order name: BNP; Complete Time: 13:24 05/09 12:17 Order name: XRAY Chest (1 view); Complete Time: 13:24 05/09 12:17 Order name: EKG; Complete Time: 12:18 05/09 12:17 Order name: Cardiac monitoring; Complete Time: 12:58 05/09 12:17 Order name: EKG - Nurse/Tech; Complete Time: 12:37 05/09 12:17 Order name: IV Saline Lock; Complete Time: 12:44 05/09 12:17 Order name: Labs collected and sent; Complete Time: 12:44 05/09 12:19 Order name: D-Dimer; Complete Time: 13:24 EDOH 05/09 12:26 Order name: SARS-COV-2 RT PCR (Document "Date of Onset" if Symptomatic) jl9 05/09 12:17 Order name: O2 Per Protocol; Complete Time: 12:58 jl9 05/09 12:17 Order name: O2 Sat Monitoring; Complete Time: 12:58 jl9 Administered Medications: No medications were administered Disposition: 17:31 Co-signature as Attending Physician, Mohit Cristobal MD. rn Disposition Summary: 05/09/22 14:40 Discharge Ordered Location: Home jl9 Condition: Stable jl9 Diagnosis - Dyspnea, unspecified jl9 Followup: jl9 - With: Private Physician - When: 1 - 2 days - Reason: Recheck today's complaints, Continuance of care, Re-evaluation by your physician Discharge Instructions: - Discharge Summary Sheet jl9 - Shortness of Breath, Adult, [id number] jl9 Forms: - Medication Reconciliation Form jl9 - Thank You Letter jl9 - Antibiotic Education jl9 - Prescription Opioid Use jl9 Prescriptions: - albuterol sulfate 90 mcg/actuation Inhalation HFA aerosol inhaler - inhale 2 puff by INHALATION route every 4-6 hours As needed; 18 gram; Refills: jl9 0, Product Selection Permitted - Prednisone 20 mg Oral Tablet - take 2 tablets by ORAL route once daily for 5 days; 10 tablet; Refills: 0, jl9 Product Selection Permitted Signatures: Dispatcher [employer] EDOH Katie Martinez RN RN iw Nieto, Roman, MD MD rn Linares, John jl9 Corrections: (The following items were deleted from the chart) 12:13 12:11 PSHx: hyst; iw iw 13:41 12:32 This 72 yrs old Female presents to ER via Ambulatory with complaints of jl9 Breathing Difficulty x2 days. Patient reports that she feels that she is developing pneumonia. . jl9 13:43 12:32 This 72 yrs old Female presents to ER via Ambulatory with complaints of jl9 Breathing Difficulty x2 days. Patient reports that she feels that she is developing pneumonia. Prior smoker and history of COPD.. jl9 13:44 12:34 Constitutional: This is a well developed, well nourished patient who is awake, jl9 alert, and in no acute distress. Head/Face: Normocephalic, atraumatic. Eyes: Pupils equal round and reactive to light, extra-ocular motions intact. Lids and lashes normal. Conjunctiva and sclera are non-icteric and not injected. Cornea within normal limits. Periorbital areas with no swelling, redness, or edema. ENT: Mucous membranes moist. Neck: Trachea midline, no thyromegaly or masses palpated, and no cervical lymphadenopathy. Supple, full range of motion without nuchal rigidity, or vertebral point tenderness. No Meningismus. Chest/axilla: Normal chest wall appearance and motion. Nontender with no deformity. No lesions are appreciated. Cardiovascular: Regular rate and rhythm with a normal S1 and S2. No gallops, murmurs, or rubs. Normal PMI, no JVD. No pulse deficits. jl9 14:39 12:32 This 72 yrs old Female presents to ER via Ambulatory with complaints of jl9 Breathing Difficulty x2 days. Patient reports that she feels that she is developing pneumonia. Prior smoker and history of COPD. Patien reports feeling better after having some of her daughter's albuterol. . jl9
--- NOTE | 2022-05-10 08:30 | EKG ---
Test Date: 2022-05-09 Test Time: 12:27:52 Medical Reimbursement Specialist: XANDER MEASUREMENT RESULTS: Intervals: Rate: 70 TX: 112 QRSD: 72 QT: 402 QTc: 434 [place]: P: 65 TX: 112 QRS: 76 T: 74 INTERPRETIVE STATEMENTS: Normal sinus rhythm Normal ECG Compared to ECG 05/11/2019 12:40:08 Myocardial infarct finding no longer present Electronically Signed On 05-10-22 08:26:48 CDT by Shaquille Estrella
[2022-05-11 08:22] VITALS: TEMP 98.1
[2022-05-11 08:24] VITALS: BP 139/99; O2SAT 99
== END 2022-05-09 14:59 | disposition home or self-care (01) ==
LOC: ER 12:02
DX: R06.00 Dyspnea, unspecified (principal); R05.9 Cough, unspecified; F32.A Depression, unspecified; Z20.822 Contact with and (suspected) exposure to COVID-19; Z72.0 Tobacco use; Z88.5 Allergy status to narcotic agent
CPT/HCPCS: 93005; 85025; 80048; 36415; 85379; 84484; 83880; 71045; 99284; U0003